=== PATIENT | female | born 1970 | race Caucasian/White ===

== ENCOUNTER → 2019-06-21 | Outpatient (CLI) | payer OTHER ==
[~2019-06-21] VITALS: Ht 162.6 cm; Wt 86.2 kg
[~2019-06-21] MED LIST: SINCALIDE 1.72 MCG in IV NORMAL SALINE 50ML 30 ML IV ONE
--- NOTE | 2019-06-21 08:35 | RAD ---
Examination: Ultrasound abdomen limited History :abdominal pain COMPARISON: None available FINDINGS: The visualized liver, spleen, adrenals grossly appears unremarkable. The liver length is 20 cm. The right kidney measures 11.6 cm in length. No evidence of gallstones. The gallbladder wall thickness measures 1.6 mm. The bile duct measures 3.2 mm in diameter. IMPRESSION: Unremarkable exam Electronically signed by: Rick Bello MD (06/21/2019 8:32 AM) [id number]
--- NOTE | 2019-06-21 11:02 | RAD ---
Exam performed: Nuclear medicine hepatobiliary scan. History: Abdominal pain COMPARISON: None available FINDINGS: Following intravenous administration of 5.5 mCi of Choletec tagged with Tc, sequential gamma camera images of the right upper quadrant of the abdomen were obtained. There is prompt accumulation of radionuclide in the liver which appears to be unremarkable Prompt accumulation in the central intrahepatic biliary radicals, gallbladder, common bile duct and small bowel is noted. Patient was also infused with 1.7mcg of CCK and gallbladder ejection fraction was calculated which measures 39% Impression: 1. No evidence of cystic duct obstruction. 2. Low normal gallbladder ejection fraction correlate for biliary dyskinesia or chronic cholecystitis. Electronically signed by: Rick Bello MD (06/21/2019 10:59 AM) [id number]
== END | disposition home or self-care (01) ==
LOC: US 07:37
PROVIDERS: ATTEND Internal Medicine Gastroenterology
DX: R10.10 Upper abdominal pain, unspecified (principal)
CPT/HCPCS: 76705; 78227; A9537; J2805